=== PATIENT | male | born 1955 | race Caucasian/White ===

== ENCOUNTER 2016-08-19 18:59 | Emergency (ER) | payer BC, OTHER ==
--- NOTE | 2016-08-19 21:41 | EDM.PDOC ---
ED HPI GENERAL MEDICAL PROBLEM - General Chief Complaint: Lower Extremity Injury/Pain Stated Complaint: HURT KNEE Time Seen by Provider: 08/19/16 20:20 Source of Information: Reports: Patient History Limitations: Reports: No Limitations - History of Present Illness INITIAL COMMENTS - FREE TEXT/NARRATIVE: HISTORY AND PHYSICAL: History of present illness: [Comes to the emergency room complaining of right knee pain. Symptoms began on Wednesday night while he was walking at work. He stepped over a large pipe that was lying on the ground. He felt a twisting sensation in his right knee and immediate pain. He has a history of a torn right patellar tendon which was repaired by a local orthopedist in approximately 2007. He's had no other problems with his knee. No other injury since his surgery. He has been wearing a knee brace since the injury occurred which has been helping for pain. no numbness or tingling to his foot or lower leg. No pain shooting up his thigh. He has no other complaints or concerns. ] Review of systems: As per history of present illness and below otherwise all systems reviewed and negative. Past medical history: As per history of present illness and as reviewed below otherwise noncontributory. Surgical history: As per history of present illness and as reviewed below otherwise noncontributory. Social history: No reported history of drug or alcohol abuse. Family history: As per history of present illness and as reviewed below otherwise noncontributory. Physical exam: HEENT: Atraumatic, normocephalic. Lungs: Clear to auscultation, breath sounds equal bilaterally. Heart: S1S2, regular rate and rhythm. Abdomen: Soft, nondistended, nontender. Pelvis: Stable nontender. Genitourinary: Deferred. Rectal: Deferred. Extremities: Mildly swollen R patella. Tender throughout medial aspect of R knee and patella. negative for cords or calf pain. Negative anterior and posterior drawer test. Negative varus/valgus. Neurovascular unremarkable. Cap RF <2 seconds. Neuro: Awake, alert, oriented. Cranial nerves II through XII unremarkable. Cerebellum unremarkable. Motor and sensory unremarkable throughout. Exam nonfocal. Diagnostics: [Right knee x-ray] Impression: [Right knee pain] Plan: [Xray shows a small R joint effusion and moderate tri-compartmental OA, no fractures. Discussed with patient that his symptoms are most likely due to a knee strain. Recommend ice, elevation, Tylenol alternating with ibuprofen. Continue wearing knee brace for support. Establish care with a local primary care provider and schedule a followup with ortho in the next week or so. He is in agreement with today's plan. All of his questions are answered and concerns are addressed. Definitive diagnosis as appropriate pending reevaluation and review of above. Right Knee Pain Score (Numeric/FACES): 5 - Related Data Allergies Allergy/AdvReac Type Severity Reaction Status Date / Time bee pollen Allergy Respiratory Verified 08/19/16 19:52 Distress Past Medical History - Past Surgical History Musculoskeletal Surgical History: Reports: Other (See Below) Other Musculoskeletal Surgeries/Procedures:: had tendon repain on right knee in 2009 Social & Family History - Family History Family Medical History: Noncontributory - Tobacco Use Smoking Status *Q: Never Smoker Second Hand Smoke Exposure: Yes - Caffeine Use Caffeine Use: Reports: Coffee, Soda - Alcohol Use Days Per Week of Alcohol Use: 1 Number of Drinks Per Day: 1 Total Drinks Per Week: 1 - Recreational Drug Use Recreational Drug Use: No Review of Systems - Review of Systems Review Of Systems: ROS reveals no pertinent complaints other than HPI. Trauma Exam - Physical Exam Exam: See Below Course - Vital Signs Last Recorded V/S: Last Vital Signs Temp 98.3 F 08/19/16 19:17 Pulse 69 08/19/16 22:00 Resp 18 08/19/16 22:00 BP 119/74 08/19/16 22:00 Pulse Ox 95 08/19/16 22:00 Departure - Departure Time of Disposition: 21:40 Disposition: Home, Self-Care 01 Preliminary Cause of *Q: Cardiac arrest Condition: good Clinical Impression: Right knee pain Qualifiers: Chronicity: acute Qualified Code(s): M25.561 - Pain in right knee - Discharge Information Instructions: Knee Sprain, [id number], Knee Immobilizer, [id number] Referrals: PCP,None [Primary Care Provider] - Forms: ED Department Discharge Additional Instructions: The following information is given to patients seen in the emergency department who are being discharged to home. This information is to outline your options for follow-up care. We provide all patients seen in our emergency department with a follow-up referral. The need for follow-up, as well as the timing and circumstances, are variable depending upon the specifics of your emergency department visit. If you don't have a primary care physician on staff, we will provide you with a referral. We always advise you to contact your personal physician following an emergency department visit to inform them of the circumstance of the visit and for follow-up with them and/or the need for any referrals to a consulting specialist. The emergency department will also refer you to a specialist when appropriate. This referral assures that you have the opportunity for follow-up care with a specialist. All of these measure are taken in an effort to provide you with optimal care, which includes your follow-up. Under all circumstances we always encourage you to contact your private physician who remains a resource for coordinating your care. When calling for follow-up care, please make the office aware that this follow-up is from your recent emergency room visit. If for any reason you are refused follow-up, please contact the [facility] emergency department at and asked to speak to the emergency department charge nurse. [facility] Professional [facility] [address] [place] [address], [address] [place] [address] [facility] [address] [place] [id number] Establish care with a local primary care provider. Followup with orthopedist next week. Call tomorrow to schedule this appointment. Recommend ice packs as needed. Alternate Tylenol and ibuprofen as needed for discomfort. Rest knee, elevate, walk with crutches. Return to ER as needed discussed.
[2016-08-19 22:36] VITALS: BP 119/74
--- NOTE | 2016-08-20 10:40 | CR ---
EXAM DATE: 08/19/16 PATIENT'S AGE: 61 Patient: LANCE MCGARRY Facility: [place], [place] Site . Site : 1955 Study: XRay Knee [id number]/17/2017 8:50:16 PM Ordering Physician: Doctor Carpenter Final Report: INDICATION: Injury 3 days ago, heard and felt a pop. TECHNIQUE: Knee radiographs 3 views COMPARISON: None FINDINGS: Patella king with small right knee joint effusion. Multiple well corticated bone densities at the anterior margin of right knee, located inferior to the patella, indeterminate significance. No definite thickening of the patellar tendon. Distal quadriceps tendon unremarkable. No acute fracture. Moderate degenerative changes of the right knee with narrowing of the joint spaces, marginal osteophytes, and tibial spurring. IMPRESSION: 1. No acute fracture. Small right knee joint effusion with moderate tri- compartment osteoarthritis and patella king. Dictated by Niraj Barragan MD @ 08/19/2016 9:06:23 PM Dictated by: Niraj Barragan MD @ 08/19/2016 21:06:36 (Electronic Signature) Report Signed by Proxy. DEW[facility]NE
== END 2016-08-19 22:01 | disposition home or self-care (01) ==
LOC: MW.ED 18:59
DX: M25.561 Pain in right knee (principal); Z91.030 Bee allergy status; Z98.890 Other specified postprocedural states
CPT/HCPCS: 73562-26-RT; 73562-RT; 99282; 99283

== ENCOUNTER 2016-10-26 16:08 | Inpatient (IN) | payer BC, OTHER ==
[2016-10-26] MEDS ORDERED: HYDROmorphone 1 MG/ML Syringe IVPUSH PRN (16:18)
[2016-10-26] MEDS ORDERED: Sodium Chloride 0.9% 1,000 ML IV ONE (16:18)
[2016-10-26] MEDS ORDERED: Ondansetron 4 MG/2 ML SDV IVPUSH ONE (16:18)
[2016-10-26] MEDS ORDERED: LORazepam 2 MG/ML MDV IVPUSH ONE (16:22)
--- NOTE | 2016-10-26 16:32 | EDM.PDOC ---
[id number]: ABDOMINAL PAIN Time Seen by Provider: 10/26/16 16:17 Source of Information: Reports: Patient History Limitations: Reports: No Limitations - History of Present Illness INITIAL COMMENTS - FREE TEXT/NARRATIVE: History of present illness: []Patient has had 3 hours of severe abdominal pain with a lump in his mid abdomen that is tender and hard. He does not know of any pre-existing hernia. Patient is nauseated with vomiting denies any diarrhea. He denies any fevers or chills but he is having sweats due to the pain. He is not had this pain in the past. Review of systems: As per history of present illness and below otherwise all systems reviewed and negative. Past medical history: As per history of present illness and as reviewed below otherwise noncontributory. Surgical history: As per history of present illness and as reviewed below otherwise noncontributory. Social history: No reported history of drug or alcohol abuse. Family history: As per history of present illness and as reviewed below otherwise noncontributory. Physical exam: General: Well developed, well nourished in NAD HEENT: Atraumatic, normocephalic, pupils reactive, negative for conjunctival pallor or scleral icterus, mucous membranes moist, throat clear, neck supple, nontender, trachea midline. Lungs: Clear to auscultation, breath sounds equal bilaterally, chest nontender. Heart: S1S2, regular, negative for clicks, rubs, or JVD. Abdomen: Soft, nondistended, nontender. Negative for masses or hepatosplenomegaly. Negative for costovertebral tenderness. Pelvis: Stable nontender. Genitourinary: Deferred. Rectal: Deferred. Extremities: Atraumatic, negative for cords or calf pain. Neurovascular unremarkable. Neuro: Awake, alert, oriented. Cranial nerves II through XII unremarkable. Cerebellum unremarkable. Motor and sensory unremarkable throughout. Exam nonfocal. Diagnostics: []Labs showing elevated white count and elevated lactic acid. Dr. Martinez was consulted immediately after examined the patient. He requested a CT scan Therapeutics: []IV hydration and Dilaudid for pain Ativan and Zofran also given Zosyn started out in the ED Impression: []incarcerated hernia Plan: []Admit to the OR by Dr. Martinez Definitive disposition and diagnosis as appropriate pending reevaluation and review of above. abdomen Pain Score (Numeric/FACES): 10 - Related Data Allergies Allergy/AdvReac Type Severity Reaction Status Date / Time bee pollen Allergy Respiratory Verified 10/26/16 16:13 Distress Home Meds: Home Meds . [No Known Home Meds] 10/26/16 [History] Past Medical History - Past Health History Medical/Surgical History: Denies Medical/Surgical History - Past Surgical History Musculoskeletal Surgical History: Reports: Other (See Below) Other Musculoskeletal Surgeries/Procedures:: had tendon repain on right knee in 2009 Social & Family History - Family History Family Medical History: Noncontributory - Tobacco Use Smoking Status *Q: Never Smoker Second Hand Smoke Exposure: Yes - Caffeine Use Caffeine Use: Reports: Coffee, Soda - Alcohol Use Days Per Week of Alcohol Use: 1 Number of Drinks Per Day: 1 Total Drinks Per Week: 1 - Recreational Drug Use Recreational Drug Use: No ED ROS GENERAL - Review of Systems Review Of Systems: See Below (See history of present illness) ED EXAM, GI/ABD - Physical Exam Exam: See Below (See history of present illness) Course - Vital Signs Last Recorded V/S: Last Vital Signs Temp 36.1 C 10/26/16 16:14 Pulse 97 10/26/16 17:17 Resp 14 10/26/16 17:17 BP 117/74 10/26/16 17:17 Pulse Ox 98 10/26/16 17:17 - Orders/Labs/Meds Orders: Active Orders 24 hr Category Date Time Status Abdomen Pelvis wo Cont [CT] Stat Exams 10/26/16 16:31 Taken UA W/MICROSCOPIC [URIN] Stat Lab 10/26/16 16:19 Uncollected HYDROmorphone [Dilaudid] Med 10/26/16 16:18 Active 0.5 mg IVPUSH Q1H PRN Saline Lock Insert [OM.PC] Stat Oth 10/26/16 16:18 Ordered Medication Orders Hydromorphone HCl (Dilaudid) 0.5 mg IVPUSH Q1H PRN PRN Reason: Pain Last Admin: 10/26/16 16:28 Dose: 0.5 mg Labs: Laboratory Tests 10/26/16 10/26/16 10/26/16 Range/Units 16:20 16:20 16:20 WBC 14.67 H (4.0-11.0) K/uL RBC 5.69 (4.50-5.90) M/uL Hgb 16.6 (13.0-17.0) g/dL Hct 46.0 (38.0-50.0) % MCV 80.8 (80.0-98.0) fL MCH 29.2 (27.0-32.0) pg MCHC 36.1 (31.0-37.0) g/dL RDW Std Deviation 38.5 (28.0-62.0) fl RDW Coeff of Angelito 13 (11.0-15.0) % Plt Count 245 (150-400) K/uL MPV 9.40 (7.40-12.00) fL Neut % (Auto) 81.9 H (48.0-80.0) % Lymph % (Auto) 11.1 L (16.0-40.0) % Sioux % (Auto) 6.5 (0.0-15.0) % Eos % (Auto) 0.3 (0.0-7.0) % Baso % (Auto) 0.2 (0.0-1.5) % Neut # (Auto) 12.0 H (1.4-5.7) K/uL Lymph # (Auto) 1.6 (0.6-2.4) K/uL Sioux # (Auto) 1.0 H (0.0-0.8) K/uL Eos # (Auto) 0.1 (0.0-0.7) K/uL Baso # (Auto) 0.0 (0.0-0.1) K/uL Nucleated RBC % 0.0 /100WBC Nucleated RBCs # 0 K/uL Lactate 2.6 H (0.20-2.00) mmol/L Sodium 145 (136-146) mmol/L Potassium 3.6 (3.5-5.1) mmol/L Chloride 108 (98-110) mmol/L Carbon Dioxide 23 (21-31) mmol/L BUN 12 (6.0-23.0) mg/dL Creatinine 1.3 (0.6-1.5) mg/dL Est Cr Clr Drug Dosing 63.84 mL/min Estimated GFR (MDRD) 55.8 ml/min Glucose 138 H (60-110) mg/dL Calcium 10.1 (8.8-10.8) mg/dL Total Bilirubin 1.1 (0.1-1.5) mg/dL AST 15 (5-40) IU/L ALT 15 (8-54) IU/L Alkaline Phosphatase 108 (40-150) Total Protein 7.8 (6.0-8.0) g/dL Albumin 4.5 (3.4-4.8) g/dL Globulin 3.3 (2.0-3.5) g/dL Albumin/Globulin Ratio 1.4 (1.3-2.8) Lipase 20 (7-80) U/L Meds: Medications Generic Name Dose Route Start Last Admin Trade Name Freq PRN Reason Stop Dose Admin Hydromorphone HCl 0.5 mg 10/26/16 16:18 10/26/16 16:28 Dilaudid IVPUSH 0.5 mg Q1H PRN Administration Pain Discontinued Medications Generic Name Dose Route Start Last Admin Trade Name Freq PRN Reason Stop Dose Admin Bupivacaine HCl/Epinephrine Bitart Confirm 10/26/16 17:30 Marcaine 0.25%/Epinephrine 1:200,000 Administered 10/26/16 17:31 Dose 50 ml .ROUTE .STK-MED ONE Fentanyl Confirm 10/26/16 17:37 Sublimaze Administered 10/26/16 17:38 Dose 250 mcg .ROUTE .STK-MED ONE Hydromorphone HCl 1 mg 10/26/16 16:37 10/26/16 16:40 Dilaudid IVPUSH 10/26/16 16:38 1 mg ONETIME STA Administration Sodium Chloride 1,000 mls @ 999 mls/hr 10/26/16 16:18 10/26/16 16:31 Normal Saline IV 10/26/16 17:18 999 mls/hr .Bolus ONE Administration Piperacillin Sod/Tazobactam 50 mls @ 100 mls/hr 10/26/16 17:05 10/26/16 17:13 Sod 3.375 gm/ Sodium Chloride IV 10/26/16 17:34 100 mls/hr ONETIME ONE Administration Lidocaine Confirm 10/26/16 17:37 Xylocaine-Mpf 2% Administered 10/26/16 17:38 Dose 5 ml .ROUTE .STK-MED ONE Lorazepam 1 mg 10/26/16 16:22 10/26/16 16:28 Ativan IVPUSH 10/26/16 16:23 1 mg ONETIME ONE Administration Midazolam HCl Confirm 10/26/16 17:37 Versed 1 Mg/Ml Administered 10/26/16 17:38 Dose 2 mg .ROUTE .STK-MED ONE Ondansetron HCl 4 mg 10/26/16 16:18 10/26/16 16:28 Zofran IVPUSH 10/26/16 16:19 4 mg ONETIME ONE Administration Ondansetron HCl Confirm 10/26/16 17:37 Zofran Administered 10/26/16 17:38 Dose 4 mg .ROUTE .STK-MED ONE Propofol Confirm 10/26/16 17:37 Diprivan 20 Ml Administered 10/26/16 17:38 Dose 200 mg .ROUTE .STK-MED ONE Rocuronium Penfield Confirm 10/26/16 17:37 Zemuron Administered 10/26/16 17:38 Dose 50 mg .ROUTE .STK-MED ONE Succinylcholine Chloride Confirm 10/26/16 17:37 Succinylcholine In Ns Pf Administered 10/26/16 17:38 Dose 200 mg .ROUTE .STK-MED ONE Departure - Departure Time of Disposition: 17:52 Disposition: Admitted As Inpatient 64 Condition: Good Clinical Impression: Incarcerated hernia - Discharge Information - My Orders Last 24 Hours: My Active Orders 10/26/16 16:18 HYDROmorphone [Dilaudid] 0.5 mg IVPUSH Q1H PRN Saline Lock Insert [OM.PC] Stat 10/26/16 16:19 UA W/MICROSCOPIC [URIN] Stat 10/26/16 16:31 Abdomen Pelvis wo Cont [CT] Stat - Assessment/Plan Last 24 Hours: My Active Orders 10/26/16 16:18 HYDROmorphone [Dilaudid] 0.5 mg IVPUSH Q1H PRN Saline Lock Insert [OM.PC] Stat 10/26/16 16:19 UA W/MICROSCOPIC [URIN] Stat 10/26/16 16:31 Abdomen Pelvis wo Cont [CT] Stat
[2016-10-26] MEDS ORDERED: HYDROmorphone 1 MG/ML Syringe IVPUSH STA (16:37)
[2016-10-26] MEDS ORDERED: Piperacillin/Tazobactam 3.375 GM in Sodium Chloride 0.9% 50 ML IV ONE (17:05)
[2016-10-26] MEDS ORDERED: Bupivacaine 0.25%/EPINEPHrine 1:200,000 10 ML SDV ONE (17:30)
[2016-10-26] MEDS ORDERED: Midazolam 1 MG/ML 2 ML SDV ONE (17:37)
[2016-10-26] MEDS ORDERED: Propofol 200 MG/20 ML SDV ONE (17:37)
[2016-10-26] MEDS ORDERED: Ondansetron 4 MG/2 ML SDV ONE (17:37)
[2016-10-26] MEDS ORDERED: Succinylcholine/Normal Saline 200 MG/10 ML Syringe ONE (17:37)
[2016-10-26] MEDS ORDERED: fentaNYL 250 MCG/5 ML SDV ONE (17:37)
[2016-10-26] MEDS ORDERED: Lidocaine 2% 5 ML SDV ONE (17:37)
--- NOTE | 2016-10-26 18:03 | PCM.SN ---
- Free Text/Narrative Note: CT > incarcerated ventral hernia w bowel, pt would need surg intervention urgently; risks and benefits dw pt re bleeding/infection/bowel resection/ostomy formation; pt consented and proceed
[2016-10-26] MEDS ORDERED: cefOXitin 2 GM in Premix Bag 1 BAG IV ONE (18:06)
[2016-10-26] MEDS ORDERED: Lactated Ringers 1,000 ML IV SCH (18:15)
[2016-10-26] MEDS ORDERED: ePHEDrine 50 MG/ML SDV ONE (18:26)
[2016-10-26] MEDS ORDERED: Sodium Chloride 0.9% 20 ML ONE (19:10)
[2016-10-26] MEDS ORDERED: HYDROmorphone 2 MG/ML Syringe ONE (19:10)
[2016-10-26] MEDS ORDERED: fentaNYL 100 MCG/2 ML SDV ONE ×2 (19:29→19:38)
[2016-10-26] MEDS ORDERED: Neostigmine Methylsulfate 1 MG/ML 5 ML Syringe ONE (19:44)
[2016-10-26] MEDS ORDERED: fentaNYL 100 MCG/2 ML SDV IVPUSH PRN (20:15)
--- NOTE | 2016-10-26 20:19 | PCM.SN ---
- Free Text/Narrative Note: Intra-OP Procedure Note Due to persistent intra-op hypotension arterial line placement was completed. Unable to obtain consent as urgent placement was required. Rt radial artery was palpated and found to have a weak pulse. Right wrist was prepped and draped in sterile fashion. 20g Arrow catheter was then introduced into the right radial artery. Pulsating bright red blood was noted, guide wire threaded with ease, catheter was then threaded into place over the guide wire without difficulty. Catheter was then transduced and showed good arterial waveform and good correlation with NIBP. Catheter was secured with tape, tegaderm, and arm board.
--- NOTE | 2016-10-26 20:25 | PCM.OPNOTE ---
- General Post-Op/Procedure Note Date of Surgery/Procedure: 10/26/16 Operative Procedure(s): exploratory laparotomy, incarcerated ventral hernia repair, no mesh used Findings: large 5 cm hernia sac with a 1.2 cm hernia opening; small bowel in hernia, alive , no bowel resection, repair, primary, no mesh used [id number] Pre Op Diagnosis: incarcerated ventral hernia Post-Op Diagnosis: same Anesthesia Technique: General ET Tube Primary Surgeon: Neymar Martinez Pathology: hernia sac sent Complications: None Condition: Stable
[2016-10-26] MEDS ORDERED: Morphine PF 30 MG/30 ML PCA Vial IV PRN (20:33)
[2016-10-26] MEDS ORDERED: Ondansetron 4 MG/2 ML SDV IVPUSH PRN (20:38)
--- NOTE | 2016-10-26 21:46 | PCM.POSTAN ---
POST ANESTHESIA ASSESSMENT - MENTAL STATUS Mental Status: Alert, Oriented - RESPIRATORY Respiratory Status: respiratory rate WNL, Airway Patent, O2 Saturation Stable - CARDIOVASCULAR CV Status: Pulse Rate WNL, Blood Pressure Stable - GASTROINTESTINAL GI Status: No Symptoms - POST OP HYDRATION Hydration Status: Adequate & Stable
[2016-10-26] MEDS: Pantoprazole 40 MG in Sodium Chloride 0.9% 10 ML IVPUSH SCH (22:39)
[2016-10-26] MEDS: Lactated Ringers 1,000 ML IV SCH (22:40)
--- NOTE | 2016-10-27 00:58 | OR ---
SURGEON: Neymar Martinez MD DATE OF PROCEDURE: 10/26/2016 PREOPERATIVE DIAGNOSIS: Incarcerated ventral hernia. POSTOPERATIVE DIAGNOSIS: Incarcerated ventral hernia. PROCEDURE PERFORMED: Exploratory laparotomy and incarcerated hernia repair primary without using mesh. COMPLICATIONS: None. FINDINGS: Hernia about 4 cm superior to the umbilicus and with very bad adherence consistent with chronic situation. The hernia sac is about 5 cm and with only a 1.2-cm hernia opening. Small bowel incarcerated. No bowel resection. Repair primary, no mesh used. We look at adherence and the adhesion suggests this may not be an acute situation. PROCEDURE IN DETAIL: The patient was taken to the operating room and placed in supine position. Upon induction of general endotracheal anesthesia, the patient's abdomen was prepped and draped in sterile fashion. A Siu inserted and Ioban was applied prophylactically. Antibiotic given prophylactically. A time-out was being called. The patient identified, procedure identified, antibiotic confirmed, procedure then started. Using a skin scalpel, midline incision beveled to the right of the umbilicus was used. Primarily because the patient had high white count and also high lactic acid, there was concern about ischemic bowel and also, the pain level and so decided to do exploratory laparotomy rather than simple hernia repair. Lower midline incision was made, beveled to the left of the umbilicus and carefully delineated the hernia sac, and then opened up the sac and found the hernia content, omentum, and small bowel and carefully delineated the hernia sac and found the sac was open and large. The hernia neck is very small, is about 1.2 cm, a little bit like the size of my thumb and there was no way the content could be released, so the hernia neck had to be opened up in order to return bowel back in peritoneum and because of the severe adherence consistent with chronicity. Finally, the hernia was reduced and the boundary was delineated and had hernia neck of 1.2 with hernia sac of 5 cm. The hernia sac was amputated and sent for pathology. The incision was repaired by use of #1 double stranded PDS and followed with skin staple and before closing, the omentum was pulled down to reduce adhesion and followed by appropriate dressing. The patient was awakened, extubated, and transferred to recovery room in hemodynamically stable condition. The patient tolerated the procedure well. There were no intraoperative complications. Dr. Martinez was present through the whole procedure. Prior to the peritoneal closing, instrument count and sponge count was correct. When I was out of the operating room, I also gave Vick Angeles's , Liz Angeles, a call. DAVID ROSS /[id number] MTDD
[2016-10-27] MEDS: Lactated Ringers 1,000 ML IV SCH ×3 (04:26→17:54)
[2016-10-27 05:43] LABS: CHLORIDE,CL 110 mmol/L (98-110); SODIUM,NA 140 mmol/L (136-146)
[2016-10-27] MEDS: Levofloxacin/Dextrose 5%-Water 750 MG in Premix Bag 1 BAG IV SCH (07:18)
[2016-10-27] MEDS: guaiFENesin/Dextromethorphan 100-10 MG/5 ML Soln 10 ML Cup PO SCH ×3 (07:18→14:47)
[2016-10-27] MEDS ORDERED: Pantoprazole 40 MG in Sodium Chloride 0.9% 10 ML IVPUSH SCH (09:00)
[2016-10-27] MEDS: Pantoprazole 40 MG in Sodium Chloride 0.9% 10 ML IVPUSH SCH (09:08)
--- NOTE | 2016-10-27 10:08 | CT ---
EXAM DATE: 10/26/16 PATIENT'S AGE: 61 Patient: LANCE MCGARRY Facility: [place], [place] Site . Site : 1955 Study: CT Abdomen/Pelvis wo cont [id number]/24/2017 4:56:48 PM Ordering Physician: Austen Molina Final Report: INDICATION: Severe abdominal pain, hernia TECHNIQUE: CT abdomen and pelvis without contrast. COMPARISON: None. FINDINGS: Special Needs Teacher CT images: Nonobstructive bowel gas pattern. Mild thoracolumbar scoliosis deformity. Lower chest: Unremarkable. Liver: Unremarkable. Spleen: Unremarkable. Pancreas: Unremarkable. Gallbladder and bile ducts: Unremarkable. Adrenal glands: Unremarkable. Kidneys: No renal calculi. Multiple parapelvic left renal cysts. No ureteral calculi identified. GI tract: Large hiatal hernia. Duodenum crosses midline. Short segment of small bowel within upper abdominal ventral hernia defect, located 2.5 centimeters superior to the umbilicus. Vascular structures: Limited evaluation mesenteric vessels without IV contrast. Abdominal aorta normal in caliber. Lymph nodes: Unremarkable. Ventral hernia defects located superior to the emboli kiss. Hernia defect contains short segment of small bowel, which is mildly dilated at 2.3 centimeters. Minimal fat stranding involving ventral hernia defects. No pneumatosis. Proximal and distal loops of small bowel are decompressed. Pelvic Organs: Unremarkable. Bones: Unremarkable for age. IMPRESSION: 1. Upper abdominal ventral hernia defect, located 2.5 centimeter superior to the umbilicus. Hernia defect contains short segment of small bowel which is mildly fluid-filled with adjacent fat stranding, considered developing incarceration of this segment of small bowel. No pneumatosis. 2. No hydronephrosis, renal, or ureteral calculi. Multiple left parapelvic renal cysts. 3. Normal appendix. 4. Sigmoid diverticulosis. 5. Hiatal hernia. Dictated by Niraj Barragan MD @ 10/26/2016 5:09:07 PM Dictated by: iNraj Braragan MD @ 10/26/2016 17:09:11 (Electronic Signature) Report Signed by Proxy. [facility]
[2016-10-27] MEDS ORDERED: Acetaminophen/oxyCODONE 325-5 MG Tab PO PRN (22:47)
[2016-10-28] MEDS: Lactated Ringers 1,000 ML IV SCH ×2 (00:30→08:07)
[2016-10-28] MEDS ORDERED: Acetaminophen 325 MG Tab PO PRN (02:16)
[2016-10-28] MEDS: Levofloxacin/Dextrose 5%-Water 750 MG in Premix Bag 1 BAG IV SCH (06:41)
[2016-10-28] MEDS: Pantoprazole 40 MG in Sodium Chloride 0.9% 10 ML IVPUSH SCH (08:15)
[2016-10-28] MEDS ORDERED: Acetaminophen/HYDROcodone 325-10 MG Tab PO PRN (08:43)
[2016-10-28] MEDS ORDERED: Ketorolac 30 MG/ML SDV IVPUSH ONE (08:45)
--- NOTE | 2016-10-28 08:50 | PCM48HPAN ---
Post Anesthesia Note - EVALUATION WITHIN 48HRS OF ANESTHETIC Vital Signs in Normal Range: Yes Patient Participated in Evaluation: Yes Respiratory Function Stable: Yes Airway Patent: Yes Cardiovascular Function Stable: Yes Hydration Status Stable: Yes Pain Control Satisfactory: Yes Nausea and Vomiting Control Satisfactory: Yes Mental Status Recovered: Yes
[2016-10-28] MEDS ORDERED: guaiFENesin/Dextromethorphan 100-10 MG/5 ML Soln 10 ML Cup PO PRN (09:01)
[2016-10-28] MEDS ORDERED: guaiFENesin/Dextromethorphan 100-10 MG/5 ML Soln 10 ML Cup PO ONE (09:15)
[2016-10-28] MEDS ORDERED: Bisacodyl 10 MG Supp RECTAL ONE (09:16)
--- NOTE | 2016-10-28 10:06 | HP ---
DATE OF : 1955 PRIMARY CARE PHYSICIAN: None PCP Consult was called. The patient was seen right after. CONCERNING QUESTION: Abdominal pain. HISTORY OF PRESENT ILLNESS: The patient is a 61-year-old gentleman, otherwise in his usual health seen in the emergency room for about 2 hours of acute onset of abdominal pain. The pain intensified and also the patient felt nauseous and vomiting. The patient denied prior episode and denied fever, chills, or diarrhea. Last bowel movement was 12 hours ago and well formed. The patient had a cup of coffee at 9 o'clock. PAST MEDICAL HISTORY: Significant for no diabetes, [place], CVA, or hypertension. ALLERGIES: Please refer to nursing notes for details. MEDICATIONS: Please refer to nursing notes for details. PAST SURGICAL HISTORY: He had some orthopedic procedure. Denied any abdominal procedure. PHYSICAL EXAMINATION: GENERAL: A well-developed well-nourished gentleman, in acute distress with facial grimacing for pain. HEENT: Normocephalic, atraumatic. Sclerae anicteric. LUNGS: Clear to auscultation. HEART: Regular rate and rhythm. ABDOMEN: Guarding with very hard mass about 2 to 3 cm above the umbilicus and tender to touch. IMPRESSION: Likely incarcerated ventral hernia with pain. White count 14 and lactic acid 2.6. Probably will benefit to have timely surgery. Risks and benefits discussed with the patient regarding bleeding, infection, possible bowel resection, and possible ostomy. The patient is currently on the CAT scan table and when the patient returns from CAT scan table, we will discuss with the patient regarding surgical management. As always, thank you for your kind referral. DAVID / CODY /[id number]
--- NOTE | 2016-10-28 10:15 | PCM.DCSUM1 ---
Discharge Summary - Hospital Course Brief History: see admission h/p for details; pt seen at ED w ct scan for 4 hrs hx of incarcerated ventral hernia w bowel; pt was taken to surgery urgently - Discharge Data Discharge Date: 10/28/16 Discharge Disposition: Home, Self-Care 01 Condition: Stable - Patient Summary/Data Operative Procedure(s) Performed: exploratory laparotomy, incarcerated ventral hernia repair, no mesh used Hospital Course: see h/p for details; pt had incarcerated ventral hernia, near strangulation, lactate and wbc was up; pt urgently taken to surgery, s/p xlap, hernia repair; postop went to icu, the next day sent to floor; pt has been on full liquid diet , doing well, wound cdi; on abd binder when up X 2 wks; will dc home on norco 7.5, fu 1 - 2 wks - Patient Instructions Diet: Full Liquid Diet Activity: Apply Ice, No Lifting Over 10 Pounds, No Strenuous Activities Driving: Do Not Drive Showering/Bathing: May Shower in 3 Days Wound/Incision Care: Keep Operative Site/Wound Site Clean and Dry Notify Provider of: Fever, Drainage, Nausea and/or Vomiting - Discharge Plan Home Medications: Home Meds . [No Known Home Meds] 10/26/16 [History] Patient Handouts: Acetaminophen; Hydrocodone tablets or capsules, Exploratory Laparotomy, Adult, Care After, Open Hernia Repair, Care After, Docusate capsules Referrals: Neymar Martinez MD [Physician] - 11/04/16 2:45 pm (Check in at 2:30 PM) - Discharge Summary/Plan Comment DC Time >30 min.: Yes - Patient Data Vitals - Most Recent: Last Vital Signs Temp 98.9 F 10/28/16 04:45 Pulse 64 10/28/16 04:45 Resp 17 10/28/16 04:45 BP 120/58 L 10/28/16 04:45 Pulse Ox 96 10/28/16 04:45 Weight - Most Recent: 188 lb 11.451 oz I&O - Last 24 hours: Intake & Output 10/27/16 10/28/16 10/28/16 22:59 06:59 14:59 Intake Total 1500 1000 Output Total 380 Balance 1120 1000 Med Orders - Current: Current Medications Acetaminophen (Tylenol) 650 mg PO Q6H PRN PRN Reason: Fever Last Admin: 10/28/16 02:46 Dose: 650 mg Hydrocodone Bitart/Acetaminophen ([place] 325-10 Mg) 0 tab PO Q4H PRN PRN Reason: PAIN Guaifenesin/Dextromethorphan (Robitussin Dm) 10 ml PO Q4H PRN PRN Reason: COUGH Lactated Ringer's (Ringers, Lactated) 1,000 mls @ 150 mls/hr IV ASDIRECTED [facility] Last Admin: 10/28/16 08:07 Dose: 150 mls/hr Pantoprazole Sodium 40 mg/ (Sodium Chloride) 10 mls @ 300 mls/hr IVPUSH DAILY [facility] Last Admin: 10/28/16 08:15 Dose: 300 mls/hr Levofloxacin/Dextrose 750 mg/ (Premix) 150 mls @ 100 mls/hr IV Q24H [facility] Last Admin: 10/28/16 06:41 Dose: 100 mls/hr Ibuprofen (Motrin) 600 mg PO Q8H PRN PRN Reason: PAIN/HEADACHE Morphine Sulfate (Morphine Software Quality Manager 30 Mg In 30 Ml) 0 mg IV ASDIRECTED PRN; Protocol PRN Reason: Pain (severe 7-10) Last Admin: 10/26/16 21:22 Dose: 0.75 mg Ondansetron HCl (Zofran) 4 mg IVPUSH Q8H PRN PRN Reason: Nausea/Vomiting Last Admin: 10/28/16 02:07 Dose: 4 mg Discontinued Medications Bisacodyl (Dulcolax) 10 mg RECTAL ONETIME ONE Stop: 10/28/16 09:17 Last Admin: 10/28/16 09:29 Dose: 10 mg Bupivacaine HCl/Epinephrine Bitart (Marcaine 0.25%/Epinephrine 1:200,000) Confirm Administered Dose 50 ml .ROUTE .STK-MED ONE Stop: 10/26/16 17:31 Ephedrine Sulfate (Ephedrine Sulfate) Confirm Administered Dose 50 mg .ROUTE .STK-MED ONE Stop: 10/26/16 18:27 Fentanyl (Sublimaze) Confirm Administered Dose 250 mcg .ROUTE .STK-MED ONE Stop: 10/26/16 17:38 Fentanyl (Sublimaze) Confirm Administered Dose 100 mcg .ROUTE .STK-MED ONE Stop: 10/26/16 19:30 Fentanyl (Sublimaze) Confirm Administered Dose 100 mcg .ROUTE .STK-MED ONE Stop: 10/26/16 19:39 Fentanyl (Sublimaze) 50 mcg IVPUSH Q5M PRN PRN Reason: Pain (severe 7-10) Stop: 10/27/16 20:15 Glycopyrrolate () Confirm Administered Dose 1 mg .ROUTE .STK-MED ONE Stop: 10/26/16 19:45 Guaifenesin/Dextromethorphan (Robitussin Dm) 5 ml PO Q4H [facility] Last Admin: 10/27/16 14:47 Dose: 5 ml Guaifenesin/Dextromethorphan (Robitussin Dm) 10 ml PO ONETIME ONE Stop: 10/28/16 09:16 Last Admin: 10/28/16 09:28 Dose: 10 ml Hydromorphone HCl (Dilaudid) 0.5 mg IVPUSH Q1H PRN PRN Reason: Pain Last Admin: 10/26/16 16:28 Dose: 0.5 mg Hydromorphone HCl (Dilaudid) 1 mg IVPUSH ONETIME STA Stop: 10/26/16 16:38 Last Admin: 10/26/16 16:40 Dose: 1 mg Hydromorphone HCl (Dilaudid) Confirm Administered Dose 2 mg .ROUTE .STK-MED ONE Stop: 10/26/16 19:11 Sodium Chloride (Normal Saline) 1,000 mls @ 999 mls/hr IV .Bolus ONE Stop: 10/26/16 17:18 Last Admin: 10/26/16 16:31 Dose: 999 mls/hr Piperacillin Sod/Tazobactam (Sod 3.375 gm/ Sodium Chloride) 50 mls @ 100 mls/ hr IV ONETIME ONE Stop: 10/26/16 17:34 Last Admin: 10/26/16 17:13 Dose: 100 mls/hr Lactated Ringer's (Ringers, Lactated) 1,000 mls @ 125 mls/hr IV ASDIRECTED [facility] Cefoxitin Sodium 2 gm/ Premix 50 mls @ 100 mls/hr IV ONETIME ONE Stop: 10/26/16 18:35 Last Admin: 10/26/16 22:39 Dose: Not Given Cefoxitin Sodium (Mefoxin In Dextrose,Iso-Osm 2 Gm/50 Ml) Confirm Administered Dose 50 mls @ as directed .ROUTE .STK-MED ONE Stop: 10/26/16 18:18 Sodium Chloride (Normal Saline) Confirm Administered Dose 20 mls @ as directed .ROUTE .STK-MED ONE Stop: 10/26/16 19:11 Pantoprazole Sodium 40 mg/ (Sodium Chloride) 10 mls @ 300 mls/hr IVPUSH DAILY [facility] Ketorolac Tromethamine (Toradol) 30 mg IVPUSH ONETIME ONE Stop: 10/28/16 08:46 Last Admin: 10/28/16 09:29 Dose: 30 mg Lidocaine (Xylocaine-Mpf 2%) Confirm Administered Dose 5 ml .ROUTE .STK-MED ONE Stop: 10/26/16 17:38 Lorazepam (Ativan) 1 mg IVPUSH ONETIME ONE Stop: 10/26/16 16:23 Last Admin: 10/26/16 16:28 Dose: 1 mg Midazolam HCl (Versed 1 Mg/Ml) Confirm Administered Dose 2 mg .ROUTE .STK-MED ONE Stop: 10/26/16 17:38 Neostigmine Methylsulfate (Neostigmine) Confirm Administered Dose 5 mg .ROUTE .STK-MED ONE Stop: 10/26/16 19:45 Ondansetron HCl (Zofran) 4 mg IVPUSH ONETIME ONE Stop: 10/26/16 16:19 Last Admin: 10/26/16 16:28 Dose: 4 mg Ondansetron HCl (Zofran) Confirm Administered Dose 4 mg .ROUTE .STK-MED ONE Stop: 10/26/16 17:38 Oxycodone/Acetaminophen (Percocet 325-5 Mg) 1 tab PO Q4H PRN PRN Reason: Pain Last Admin: 10/28/16 06:45 Dose: 1 tab Propofol (Diprivan 20 Ml) Confirm Administered Dose 200 mg .ROUTE .STK-MED ONE Stop: 10/26/16 17:38 Rocuronium [place] (Zemuron) Confirm Administered Dose 50 mg .ROUTE .STK-MED ONE Stop: 10/26/16 17:38 Succinylcholine Chloride (Succinylcholine In Ns Pf) Confirm Administered Dose 200 mg .ROUTE .STK-MED ONE Stop: 10/26/16 17:38 *Q Meaningful Use (DIS) - VTE *Q VTE Criteria *Q: - Stroke *Q Stroke Criteria *Q: - AMI *Q AMI Criteria *Q:
[2016-10-28 10:52] VITALS: BP 109/64
[2016-10-28] MEDS ORDERED: Ibuprofen 600 MG Tab PO PRN (15:00)
== END 2016-10-28 11:30 | disposition home or self-care (01) | DRG 227 ==
LOC: MW.ED 16:08 → MW.SDS 17:21 → MW.ICU 20:13 → MW.SDS 20:43 → MW.ICU 20:43 → MW.MS 10-27 15:43
PROVIDERS: ADMIT Surgery; ATTEND Surgery
PROC: 0WQF0ZZ Repair Abdominal Wall, Open Approach (ICD-10-PCS; principal; 2016-10-26)
PROC: 03HY32Z Insertion of Monitoring Device into Upper Artery, Percutaneous Approach (ICD-10-PCS; 2016-10-26)
DX: K43.6 Other and unspecified ventral hernia with obstruction, without gangrene (principal)
CPT/HCPCS: 00840; 36415; 36620; 74176; 74176-26; 80053; 81001; 83605; 83690; 85025; 88302; 96361; 96365; 96375; 99285; 99285-25; A9270-GY; C9113; J1170; J1885; J1956; J2060; J2250; J2274; J2405; J2543; J2704; J3010; J7040; J7050; J7120